=== PATIENT | male | born 1960 | race Caucasian/White ===

== ENCOUNTER → 2017-04-10 | Outpatient (CLI) | payer OTHER ==
--- NOTE | 2017-04-13 07:28 | DIAGNOSTIC IMAGING REPORT ---
MRI THE RIGHT ANKLE NO CONTRAST CLINICAL HISTORY: Persistent right ankle pain COMPARISON STUDY: Outside conventional radiographic study dated 02/19/2017 FINDINGS: Imaging was performed in sagittal, coronal, and axial planes. There are no areas of marrow edema to indicate occult fracture. There is no evidence of avascular necrosis. There is mild marrow edema within the anterior inferior talus, and anterior process of the calcaneus, likely on a degenerative basis. There is also edema present with a prominent peroneal tubercle of the calcaneus. The anterior and posterior tibiofibular ligaments appear intact. The anterior posterior talofibular ligaments appear intact. The deltoid ligament appears intact. There is fluid within the tendon sheath the tibialis posterior and flexor digitorum longus tendons. There is mild peroneus brevis tendinopathy. There is no evidence of significant Achilles tendinopathy. There is no evidence of plantar fasciitis. There is a 17 mm ganglion cyst located between the flexor hallucis longus and flexure digitorum longus tendons. Mild degenerative changes are present within the tibiotalar joint and subtalar joint. There is a small amount joint fluid present. There is suspected mild synovial hypertrophy. IMPRESSION: 1. No evidence of occult fracture 2. Mild degenerative changes within the tibiotalar joint and subtalar joint 3. Suspected mild synovial hypertrophy 4. Ganglion cyst located within the flexor hallucis longus and flexor digitorum longus tendons 5. Prominent peroneal tubercle and suspected mild peroneal brevis tendinopathy 6. No evidence of major ligamentous disruption Electronically signed by: Shawn Osullivan M.D. 04/13/2017 7:27 AM Dictated Date/Time: 04/13/2017 7:08 AM
== END | disposition home or self-care (01) ==
PROVIDERS: ATTEND Orthopaedic Surgery
DX: M25.571 Pain in right ankle and joints of right foot (principal); M67.471 Ganglion, right ankle and foot